=== PATIENT | male | born 1995 | race Caucasian/White ===

== ENCOUNTER 2016-12-29 19:03 | Emergency (ER) | payer MEDICAID ==
[2016-12-29 21:07] LABS: INFLUENZA A NEGATIVE (NEGATIVE); INFLUENZA B NEGATIVE (NEGATIVE)
--- NOTE | 2016-12-29 21:51 | Emergency Department Record ---
History of Present Illness - General Chief Complaint: Fever Stated Complaint: BAD COUGH Time Seen by Provider: 12/29/16 21:45 Source: Patient Mode of Arrival: Ambulatory - History of Present Illness Initial Comments: 24 hours of achiness, fatigue, sore throat, congestion and cough without nausea , vomiting, rashes, stiff neck. Able to drink fluids and is urinating normally. MD Complaint: Fever, Malaise, Weakness, Other (sore throat) Onset/Timin -: Days(s) Associated Symptoms: Chills, Cough, Nasal congestion, Sore throat Treatments Prior to Arrival: "Cold medicine" - Related Data Home Medications Medication Instructions Recorded Confirmed Last Taken No Home Med [NO HOME MEDS] 12/29/16 12/29/16 Unknown Allergies Allergy/AdvReac Type Severity Reaction Status Date / Time No Known Drug Allergies Allergy Verified 12/29/16 20:38 Travel Screening - Travel/Exposure Within Last 30 Days Have you traveled within the last 30 days?: No - Travel/Exposure Within Last Year Have you traveled outside the [place] in the last year?: No Review of Systems Reviewed: No additional complaints except as noted below Constitutional: Reports: As per HPI. Denies: Chills, Fever, Malaise, Night sweats, Weakness, Weight change Eyes: Reports: As per HPI. Denies: Eye discharge, Eye pain, Photophobia, Vision change ENT: Reports: As per HPI. Denies: Congestion, Dental pain, Ear pain, Epistaxis , Hearing loss, Throat pain Respiratory: Reports: As per HPI. Denies: Cough, Dyspnea, Hemoptysis, Stridor, Wheezes Cardiovascular: Reports: As per HPI. Denies: Arrhythmia, Chest pain, Dyspnea on exertion, Edema, Murmurs, Orthopnea, Palpitations, Paroxysmal nocturnal dyspnea, Rheumatic Fever, Syncope Endocrine: Reports: As per HPI. Denies: Fatigue, Heat or cold intolerance, Polydipsia, Polyuria Gastrointestinal: Reports: As per HPI. Denies: Abdominal pain, Constipation, Diarrhea, Hematemesis, Hematochezia, Melena, Nausea, Vomiting Genitourinary: Reports: As per HPI. Denies: Dysuria, Frequency, Hematuria, Incontinence, Retention, Testicular pain, Testicular mass, Urgency Musculoskeletal: Reports: As per HPI. Denies: Arthralgia, Back pain, Gout, Joint swelling, Myalgia, Neck pain Skin: Reports: As per HPI. Denies: Bruising, Change in color, Change in hair/ nails, Lesions, Pruritus, Rash Neurological: Reports: As per HPI. Denies: Abnormal gait, Confusion, Headache, Numbness, Paresthesias, Seizure, Tingling, Tremors, Vertigo, Weakness Psychiatric: Reports: As per HPI. Denies: Anxiety, Auditory hallucinations, Depression, Homicidal thoughts, Suicidal thoughts, Visual hallucinations Hematological/Lymphatic: Reports: As per HPI. Denies: Anemia, Blood Clots, Easy bleeding, Easy bruising, Swollen glands Past Medical History - SOCIAL HISTORY Smoking Status: Current every day smoker Alcohol Use: Occassional Drug Use Detail:: Marijuana - RESPIRATORY Hx Respiratory Disorders: No - CARDIOVASCULAR Hx Cardio Disorders: No - NEURO Hx Neuro Disorders: No - GI Hx GI Disorders: No - Hx Genitourinary Disorders: No - ENDOCRINE Hx Endocrine Disorders: No - MUSCULOSKELETAL Hx Musculoskeletal Disorders: No - PSYCH Hx Psych Problems: No - HEMATOLOGY/ONCOLOGY Hx Hematology/Oncology Disorders: No Family Medical History Any Significant Family History?: Yes Hx Stroke: Mother *Stroke Comment: Aneurysm Physical Exam - General General Appearance: Alert, Oriented x3, Cooperative, No acute distress - Head Head exam: Normal inspection - Eye Eye exam: Normal appearance, PERRL Pupils: Normal accommodation - ENT ENT exam: Normal exam, Mucous membranes moist, Normal external ear exam, Normal orophraynx, Other (erythema with good landmarks) Ear exam: Normal external inspection. negative: External canal tenderness Nasal Exam: Normal inspection. negative: Discharge, Sinus tenderness Mouth exam: Normal external inspection, Tongue normal Teeth exam: Normal inspection. negative: Dental caries Throat exam: Normal inspection, Tonsillar erythema, Tonsillar exudate (trace) - Neck Neck exam: Normal inspection, Full ROM, Lymphadenopathy (sore but no palpable enlargement). negative: Meningismus, Tenderness - Respiratory Respiratory exam: Normal lung sounds bilaterally, Wheezes (expiratory and with coughing). negative: Respiratory distress - Cardiovascular Cardiovascular Exam: Regular rate, Normal rhythm, Normal heart sounds - GI/Abdominal GI/Abdominal exam: Soft, Normal bowel sounds. negative: Tenderness - Rectal Rectal exam: Deferred - exam: Deferred - Extremities Extremities exam: Normal inspection, Full ROM, Normal capillary refill. negative: Tenderness - Back Back exam: Reports: Normal inspection, Full ROM. Denies: Muscle spasm, Rash noted, Tenderness - Neurological Neurological exam: Alert, Normal gait, Oriented X3, Reflexes normal - Psychiatric Psychiatric exam: Normal affect, Normal mood - Skin Skin exam: Dry, Intact, Normal color, Warm Course Vital Signs 12/29/16 20:39 Temperature 99.2 F Pulse Rate 102 H Respiratory 20 Rate Blood Pressure 140/75 Pulse Ox 97 - Reevaluation(s) Reevaluation #1: Patient prefers to not have IV, and states he will orally hydrate. 12/29/16 22:37 Reevaluation #2: Patient drank 2 large glasses water. He requested he medical marijuana card for ADD. PCP list given. 12/29/16 22:44 Medical Decision Making - Management Options MDM Management: No Additional Work-up Planned - Data Complexity MDM Data: Labs Ordered and/or Reviewed (Influenza A,B, negative; strep negative. ) - Lab Data Lab Results 12/29/16 12/29/16 Range/Units 21:00 21:07 Influenza Type A Ag Negative (NEGATIVE) Influenza Type B Ag Negative (NEGATIVE) Group A Strep Screen Negative (NEGATIVE) Disposition Disposition: Discharge Clinical Impression: Acute viral syndrome Disposition: Home, Self-Care Condition: (1) Good Instructions: Fever in Adults (ED), Viral Syndrome (ED) Additional Instructions: Push fluids. tylenol alternated with ibuprofen as directed as needed for pain, fevers. Bedside vaporizer, benadryl elixir 50 mg at night for sleep and cough suppression. PCP referral list. Forms: Patient Portal Access
[2016-12-29] MEDS ORDERED: IBUPROFEN 600 MG TABLET PO ONE (21:54)
[2016-12-29] MEDS ORDERED: HYDROCODONE/APAP 5/325MG TABLET PO ONE (21:54)
== END 2016-12-29 22:57 | disposition home or self-care (01) ==
LOC: ER 19:03
DX: B34.9 Viral infection, unspecified (principal); R50.81 Fever presenting with conditions classified elsewhere; R05 Cough; J02.9 Acute pharyngitis, unspecified
CPT/HCPCS: 71020; 87400; 87880; 99283

== ENCOUNTER 2017-05-23 22:01 | Emergency (ER) | payer SELFPAY ==
--- NOTE | 2017-05-23 22:19 | Emergency Department Record ---
History of Present Illness - General Chief complaint: ENT Stated complaint: SORE THROAT Time Seen by Provider: 05/23/17 22:18 Source: Patient Mode of Arrival: Ambulatory Limitations: No limitations - History of Present Illness Initial comments: The patient is here due to a one day hx of a ST with mild cough. He denies any fever, chills, sputum production, ear pain or SARAH. complaint: Sore throat Onset/Timin -: Days(s) Location: Throat Severity scale (1-10): 8 Quality: Aching Consistency: Constant, Getting worse Improves with: None Worsens with: Swallowing Associated Symptoms: Cough, Pain with swallowing, Sore throat - Related Data Previous Rx's Medication Instructions Recorded Prednisone [Prednisone 20Mg] 40 mg PO DAILY #8 tab 05/23/17 Allergies Allergy/AdvReac Type Severity Reaction Status Date / Time No Known Drug Allergies Allergy Verified 12/29/16 20:38 Travel Screening - Travel/Exposure Within Last 30 Days Have you traveled within the last 30 days?: No - Travel Symptoms Symptom Screening: None Review of Systems Constitutional: Reports: Malaise. Denies: Chills, Fever Eyes: Denies: Eye discharge ENT: Denies: Congestion Respiratory: Reports: Cough. Denies: Dyspnea Past Medical History - SOCIAL HISTORY Smoking Status: Current every day smoker - RESPIRATORY Hx Respiratory Disorders: No - CARDIOVASCULAR Hx Cardio Disorders: No - NEURO Hx Neuro Disorders: No - GI Hx GI Disorders: No - Hx Genitourinary Disorders: No - ENDOCRINE Hx Endocrine Disorders: No - MUSCULOSKELETAL Hx Musculoskeletal Disorders: No - PSYCH Hx Psych Problems: No - HEMATOLOGY/ONCOLOGY Hx Hematology/Oncology Disorders: No Family Medical History Any Significant Family History?: Yes Hx Stroke: Mother *Stroke Comment: Aneurysm Physical Exam - General General Appearance: Alert, Cooperative, No acute distress - Head Head exam: Atraumatic, Normocephalic, Normal inspection - Eye Eye exam: Normal appearance, PERRL - ENT ENT exam: TM's normal bilaterally. negative: Normal orophraynx Throat exam: Tonsillar erythema. negative: Normal inspection, Tonsillomegaly, Tonsillar exudate, R peritonsillar mass, L peritonsillar mass - Neck Neck exam: Normal inspection, Full ROM, Lymphadenopathy (There are mildly tender anterior tonsillar nodes.). negative: Meningismus, Tenderness - Respiratory Respiratory exam: Normal lung sounds bilaterally. negative: Respiratory distress - Cardiovascular Cardiovascular Exam: Regular rate, Normal rhythm, Normal heart sounds Course Vital Signs 05/23/17 22:11 Temperature 98.7 F Pulse Rate [ 84 Pulse Ox Probe] Respiratory 18 Rate Blood Pressure 120/80 [Left Arm] Pulse Ox 96 - Reevaluation(s) Reevaluation #1: I did explain to the patient that the strep test is Neg. With the cough that he has I do believe his etiology for the ST is viral. He is to use Tylenol or Motrin for pain and to continue the Prednisone and see his PCP if not better by Friday or return to the ER for recheck. 05/23/17 22:38 Medical Decision Making - Data Complexity MDM Data: Labs Ordered and/or Reviewed (Strep test: Neg.) Disposition Disposition: Discharge Clinical Impression: Pharyngitis Qualifiers: Pharyngitis/tonsillitis etiology: unspecified etiology Qualified Code(s): J02.9 - Acute pharyngitis, unspecified Disposition: Home, Self-Care Condition: (1) Good Instructions: Pharyngitis (ED) Additional Instructions: Please use Tylenol or Motrin for pain and continue the Prednisone. Please see your PCP or return to the ER if not better in 3 days. Prescriptions: Prednisone [Prednisone 20Mg] 40 mg PO DAILY #8 tab Forms: Patient Portal Access Time of Disposition: 22:40 Quality - Quality Measures Quality Measures: N/A - Blood Pressure Screening View Details: Yes Does Patient Have Any of the Following: No Blood Pressure Classification: Pre-Hypertensive BP Reading Systolic Measurement: 120 Diastolic Measurement: 80 Screening for High Blood Pressure: < Pre-Hypertensive BP, F/U Documented > [ [id number]] Pre-Hypertensive Follow-up Interventions: Referral to alternative/primary care provider.
[2017-05-23] MEDS ORDERED: PREDNISONE 20 MG TAB PO ONE (22:32)
== END 2017-05-23 22:54 | disposition home or self-care (01) ==
LOC: ER 22:01
DX: J02.9 Acute pharyngitis, unspecified (principal)
CPT/HCPCS: 87880; J7512; 99282